=== PATIENT | male | born 1960 | race African-American/Black ===

== ENCOUNTER 2016-05-13 00:32 | Emergency (ER) | payer MEDICARE ==
[~2016-05-13] VITALS: Ht 175.3 cm; Wt 104.0 kg
[2016-05-13 00:34] VITALS: BP 180/103; PULSE 68; RESP 16; TEMP 98.4; O2SAT 99
[2016-05-13] MEDS ORDERED: OMEP20TA PO (02:43)
[2016-05-13] MEDS ORDERED: NAVANE PO (02:43)
[2016-05-13 02:44] VITALS: BP 170/107; PULSE 67; RESP 18; O2SAT 97
[2016-05-13] MEDS ORDERED: VIST25CA PO (02:44)
[2016-05-13 03:01] VITALS: BP 156/91; PULSE 65; RESP 18; O2SAT 96
[2016-05-13 04:02] VITALS: BP 145/92; PULSE 68; RESP 18; O2SAT 96
[2016-05-13 04:29] LABS: AUTOMATED NEUTROPHIL # 4.1 TH/MM3 (1.8-7.7); BASOPHIL % 0.8 % (0.0-2.0); EOSINOPHIL # 0.1 TH/MM3 (0-0.4); EOSINOPHIL % 1.1 % (0.0-4.0); HEMATOCRIT 44.7 % (39.0-51.0); HEMO FLAGS DIFF FINAL; LYMPHOCYTE # 1.5 TH/MM3 (1.0-4.8); MEAN CELL VOLUME 88.1 FL (80.0-100.0); MEAN CORPUSCULAR HEMOGLOBIN 30.8 PG (27.0-34.0); MEAN CORPUSCULAR HGB CONC 34.9 % (32.0-36.0); MONO % 7.4 % (0.0-8.0); NEUT % 66.7 % (16.0-70.0); PLATELET COUNT 198 TH/MM3 (150-450); RED BLOOD COUNT 5.08 MIL/MM3 (4.50-5.90); RED CELL DISTRIBUTION WIDTH 12.9 % (11.6-17.2); WHITE BLOOD COUNT 6.2 TH/MM3 (4.0-11.0)
[2016-05-13 04:53] LABS: MAGNESIUM 2.1 MG/DL (1.5-2.5); POTASSIUM 3.9 MEQ/L (3.5-5.1)
--- NOTE | 2016-05-13 05:31 | PD ---
HPI Chief Complaint: Numbness/Tingling Time Seen by Provider: 04:13 Travel History International Travel<30 days: No Contact w/Intl Traveler<30days: No Traveled to known affect area: No History of Present Illness HPI 55-year-old male presents to the emergency department by private transportation for complaint of burning and tingling and needlelike sensation to both lower extremities primarily the feet and lower leg since Monday. Patient denies any specific injury. Patient denies any weakness of the lower extremities. Patient states he is not diabetic. Patient has not had any bladder or bowel dysfunction. Patient's had no recent viral illness. Symptoms are fairly symmetric. Patient states that he contacted his primary care provider who is range for several outpatient testing be performed on Monday morning. Patient has had no chest pain no rib pain no pleuritic pain no shortness of breath and no hemoptysis. Patient states that as he continued to think about his symptoms he thought he should be evaluated because she was concerned. Diabetic neuropathy. Patient states that he recently had blood work performed through his primary care provider's office his cholesterol was fine and his blood sugar was also fine. Patient is adopted does not know his family history. Patient has not noticed any swelling or edema of the lower extremities no redness or induration or increased warmth also no pallor or coolness and no claudication type symptoms with ambulation. Patient reports he is very active and [place] on the beach [place] day. Patient states since purchasing a new car with lower CT is noted that when he is sitting in the car that he has pain behind the distal thigh area and that this seems to also aggravate his symptoms since Monday. Patient states that he has adjusted the seat just this evening. Patient takes no medications for his symptoms. Symptoms appear to be intermittent in intensity. No recent long distance travel protracted bedrest her surgical procedure. No personal history of clotting disorder. Patient has history of bipolar disorder and has been well-controlled for 15 years no change in medication. Patient taking no new medications. [facility] Past Medical History Narrative Medical Bipolar disorder tobacco use alcohol use nursing notes reviewed Bipolar Disorder: Yes Diminished Hearing: No Tetanus Vaccination: < 5 Years Influenza Vaccination: No Past Surgical History Surgical History: No Previous Surgery Social History Alcohol Use: Yes (2-3x week) Tobacco Use: Yes (5 cigarettes a day) Substance Use: No Allergies-Medications (Allergen,Severity, Reaction): Coded Allergies: Penicillin (Verified Allergy, Unknown, 05/13/16) Reported Meds & Prescriptions Reported Meds & Active Scripts Active Reported Vistaril (Hydroxyzine Pamoate) 25 Mg Cap 25 Mg PO HS Omeprazole 20 Mg Tab 20 Mg PO DAILY [navane] 2 Mg PO DAILY Review of Systems Except as stated in HPI: all other systems reviewed are Neg General / Constitutional: No: Fever, Chills HENT: No: Congestion Cardiovascular: No: Chest Pain or Discomfort Respiratory: No: Shortness of Breath, Pleuritic Pain Gastrointestinal: No: Abdominal Pain Genitourinary: No: Flank Pain Musculoskeletal: Positive: Myalgias, Arthralgias, Pain (burning), No: Weakness , Cramping, Edema Skin: No Rash Neurologic: No: Weakness Psychiatric: Positive: Anxiety Hematologic/Lymphatic: No: Lymph Node Enlargement Physical Exam Narrative GENERAL: Well-developed well-nourished male in no acute distress no respiratory distress SKIN: Warm and dry. HEAD: Normocephalic. EYES: No scleral icterus. No injection or drainage. NECK: Supple, trachea midline. No JVD or lymphadenopathy. CARDIOVASCULAR: Regular rate and rhythm without murmurs, gallops, or rubs. RESPIRATORY: Breath sounds equal bilaterally. No accessory muscle use. GASTROINTESTINAL: Abdomen soft, non-tender, nondistended. MUSCULOSKELETAL: No cyanosis, or bilateral lower extremity edema. No redness no induration no increased warmth no edema no pallor no coolness no calf tenderness negative Homans sign bilateral dorsalis pedis pulses 2+ to palpation posterior tibialis pulses 2+ to palpation femoral pulses 2+ to palpation capillary refill brisk and less than 2 seconds per digit nontender to direct palpation no deformity; extremities able to demonstrate full range of motion; negative straight-leg raising. BACK: Nontender without obvious deformity. No CVA tenderness. Data Data Last Documented VS Vital Signs Date Time Temp Pulse Resp B/P Pulse Ox O2 Delivery O2 Flow Rate FiO2 05/13/16 04:02 68 18 145/92 96 Room Air 05/13/16 00:34 98.4 Orders Complete Blood Count With Diff (05/13/16 04:13) Basic Metabolic Panel (Bmp) (05/13/16 04:13) Magnesium (Mg) (05/13/16 04:13) Spine, Lumbar - Ltd (Ap & Lat) (05/13/16 ) Labs Laboratory Tests Test 05/13/16 04:15 White Blood Count 6.2 TH/MM3 Red Blood Count 5.08 MIL/MM3 Hemoglobin 15.6 GM/DL Hematocrit 44.7 % Mean Corpuscular Volume 88.1 FL Mean Corpuscular Hemoglobin 30.8 PG Mean Corpuscular Hemoglobin 34.9 % Concent Red Cell Distribution Width 12.9 % Platelet Count 198 TH/MM3 Mean Platelet Volume 8.2 FL Neutrophils (%) (Auto) 66.7 % Lymphocytes (%) (Auto) 24.0 % Monocytes (%) (Auto) 7.4 % Eosinophils (%) (Auto) 1.1 % Basophils (%) (Auto) 0.8 % Neutrophils # (Auto) 4.1 TH/MM3 Lymphocytes # (Auto) 1.5 TH/MM3 Monocytes # (Auto) 0.5 TH/MM3 Eosinophils # (Auto) 0.1 TH/MM3 Basophils # (Auto) 0.0 TH/MM3 CBC Comment DIFF FINAL Differential Comment Sodium Level 141 MEQ/L Potassium Level 3.9 MEQ/L Chloride Level 106 MEQ/L Carbon Dioxide Level 28.0 MEQ/L Anion Gap 7 MEQ/L Blood Urea Nitrogen 8 MG/DL Creatinine 0.94 MG/DL Estimat Glomerular Filtration 100 ML/MIN Rate Random Glucose 100 MG/DL Calcium Level 8.3 MG/DL Magnesium Level 2.1 MG/DL MDM Medical Decision Making Medical Screen Exam Complete: Yes Emergency Medical Condition: Yes Medical Record Reviewed: Yes Interpretation(s) Lumbar x-ray, limited: No acute bony abnormalities CBC & BMP Diagram 05/13/16 04:15 Differential Diagnosis Peripheral neuropathy radiculopathy claudication electrolyte disturbance also to consider DVT limb ischemia Narrative Course Specimens collected and sent for resulting evaluate for elevated white cell count electrolyte disturbance and limited lumbar spine x-ray patient does not have any exam findings for DVT or limb ischemia; patient offered ibuprofen for symptom relief. Patient encouraged to follow-up with primary care provider as planned for further evaluation. She is stable for outpatient management at this time. At 5:57 AM patient feels well and is desirous of being discharged home lab values are normal range physical exam is unable to reproduce any specific focality and imaging study reveals no acute bony abnormalities. Patient is stable for outpatient management and follow-up with primary care provider as planned. Diagnosis Primary Impression: Peripheral neuropathic pain Referrals: Maile Osborne MD 1 day Patient Instructions: General Instructions Additional Instructions: Follow-up with primary care provider as planned Return to the emergency department for any concerns or change in condition May use [id number] acetaminophen or ibuprofen as needed for pain or fever 100.4F or greater Increase fluid hydration Med/Other Pt SpecificInfo: No Change to Meds Disposition: 01 DISCHARGE HOME Condition: Stable Nikkie Robins MD May 13, 2016 05:31
[2016-05-13 05:47] VITALS: BP 145/92
--- NOTE | 2016-05-13 06:29 | RADRPT ---
EXAM DATE/TIME: 05/13/2016 04:27 [facility] COMPARISON: No previous studies available for comparison. INDICATIONS : Patient complains of minor lower back pain, main complaint is burning and stinging of bilateral lower legs. MEDICAL HISTORY : None. SURGICAL HISTORY : None. ENCOUNTER: Initial ACUITY: 4 - 6 days PAIN SCORE: 2/10 LOCATION: L-Spine FINDINGS: The alignment is satisfactory. There is no evidence of fracture or destructive change. Degenerative c hanges are present with small nominally ventral endplate osteophytes at multiple levels. CONCLUSION: Mild degenerative changes. No acute bony findings Adrian Sarabia MD on May 13, 2016 at 6:26 Board Certified Radiologist. This report was verified electronically.
[2016-05-14] MEDS ORDERED: THIO2CAP PO (11:26)
== END 2016-05-13 06:22 | disposition home or self-care (01) ==
LOC: NEPC 00:32
DX: G62.9 Polyneuropathy, unspecified (principal); Z72.0 Tobacco use; Z79.899 Other long term (current) drug therapy; Z86.59 Personal history of other mental and behavioral disorders
CPT/HCPCS: 72100; 80048; 83735; 85025; 99284

== ENCOUNTER 2016-05-20 18:05 | Emergency (ER) | payer MEDICARE ==
[~2016-05-20] VITALS: Ht 175.3 cm; Wt 105.0 kg
[~2016-05-20 18:05] MED LIST: OMEP20TA PO; THIO2CAP PO; VIST25CA PO
[2016-05-20 18:07] VITALS: BP 175/97; PULSE 84; RESP 16; TEMP 98.9; O2SAT 96
--- NOTE | 2016-05-20 18:51 | PD ---
HPI Chief Complaint: Abdominal Pain Time Seen by Provider: 18:43 Travel History International Travel<30 days: No Contact w/Intl Traveler<30days: No Traveled to known affect area: No History of Present Illness HPI 55-year-old male complains of right low quadrant abdominal pain. Patient states this pain started yesterday. Patient states the pain is sharp intermittent pain localized to the right low quadrant of the abdomen. Patient denies any pain radiation. Patient denies any nausea vomiting diarrhea. Patient denies dysuria or frequency. Patient denies any fever chills. PFSH Past Medical History Bipolar Disorder: Yes Diminished Hearing: No GERD: Yes Medical other: Yes (neuropathy) Social History Alcohol Use: Yes (2-3x week) Tobacco Use: Yes (5 cigarettes a day) Substance Use: No Allergies-Medications (Allergen,Severity, Reaction): Coded Allergies: Penicillin (Verified Allergy, Unknown, 05/20/16) Reported Meds & Prescriptions Reported Meds & Active Scripts Active Reported Thiothixene 2 Mg Cap 2 Mg PO DAILY Vistaril (Hydroxyzine Pamoate) 25 Mg Cap 25 Mg PO HS Omeprazole 20 Mg Tab 20 Mg PO DAILY Review of Systems General / Constitutional: No: Fever Eyes: No: Visual changes HENT: No: Headaches Cardiovascular: No: Chest Pain or Discomfort Respiratory: No: Shortness of Breath Gastrointestinal: Positive: Abdominal Pain Genitourinary: No: Dysuria Musculoskeletal: No: Pain Skin: No Rash Neurologic: No: Weakness Psychiatric: No: Depression Endocrine: No: Polydipsia Hematologic/Lymphatic: No: Easy Bruising Physical Exam Narrative GENERAL: Well-nourished, well-developed patient. SKIN: Warm and dry. HEAD: Normocephalic. EYES: No scleral icterus. No injection or drainage. NECK: Supple, trachea midline. No JVD or lymphadenopathy. CARDIOVASCULAR: Regular rate and rhythm without murmurs, gallops, or rubs. RESPIRATORY: Breath sounds equal bilaterally. No accessory muscle use. GASTROINTESTINAL: Abdomen soft, nondistended. Patient has mild to moderate tenderness on palpation right low quadrant of the abdomen. No rebound tenderness. No mass. MUSCULOSKELETAL: No cyanosis, or edema. BACK: Nontender without obvious deformity. No CVA tenderness. Neurologic exam normal. Data Data Last Documented VS Vital Signs Date Time Temp Pulse Resp B/P Pulse Ox O2 Delivery O2 Flow Rate FiO2 05/20/16 18:07 98.9 84 16 175/97 96 Room Air Orders Complete Blood Count With Diff (05/20/16 18:48) Comprehensive Metabolic Panel (05/20/16 18:48) Lipase (05/20/16 18:48) Prothrombin Time / Inr (Pt) (05/20/16 18:48) Act Partial Throm Time (Ptt) (05/20/16 18:48) Urinalysis - C+S If Indicated (05/20/16 18:48) Ct Abd/Pel W Iv Contrast(Rout) (05/20/16 18:48) Iv Access Insert/Monitor (05/20/16 18:48) Ecg Monitoring (05/20/16 18:48) Oximetry (05/20/16 18:48) Iohexol 350 Inj (Omnipaque 350 Inj) (05/20/16 20:52) Labs Laboratory Tests Test 05/20/16 05/20/16 18:50 18:55 White Blood Count 7.6 TH/MM3 Red Blood Count 5.31 MIL/MM3 Hemoglobin 16.2 GM/DL Hematocrit 47.1 % Mean Corpuscular Volume 88.6 FL Mean Corpuscular Hemoglobin 30.4 PG Mean Corpuscular Hemoglobin 34.3 % Concent Red Cell Distribution Width 13.2 % Platelet Count 204 TH/MM3 Mean Platelet Volume 8.2 FL Neutrophils (%) (Auto) 72.6 % Lymphocytes (%) (Auto) 18.5 % Monocytes (%) (Auto) 7.6 % Eosinophils (%) (Auto) 0.8 % Basophils (%) (Auto) 0.5 % Neutrophils # (Auto) 5.5 TH/MM3 Lymphocytes # (Auto) 1.4 TH/MM3 Monocytes # (Auto) 0.6 TH/MM3 Eosinophils # (Auto) 0.1 TH/MM3 Basophils # (Auto) 0.0 TH/MM3 CBC Comment DIFF FINAL Differential Comment Prothrombin Time 10.4 SEC Prothromb Time International 0.9 RATIO Ratio Activated Partial 28.1 SEC Thromboplast Time Sodium Level 139 MEQ/L Potassium Level 4.2 MEQ/L Chloride Level 103 MEQ/L Carbon Dioxide Level 30.1 MEQ/L Anion Gap 6 MEQ/L Blood Urea Nitrogen 9 MG/DL Creatinine 1.09 MG/DL Estimat Glomerular Filtration 85 ML/MIN Rate Random Glucose 99 MG/DL Calcium Level 8.6 MG/DL Total Bilirubin 0.4 MG/DL Aspartate Amino Transf 13 U/L (AST/SGOT) Alanine Aminotransferase 26 U/L (ALT/SGPT) Alkaline Phosphatase 88 U/L Total Protein 7.6 GM/DL Albumin 4.1 GM/DL Lipase 168 U/L Urine Color LIGHT-YELLOW Urine Turbidity CLEAR Urine pH 7.5 Urine Specific [place] 1.004 Urine Protein NEG mg/dL Urine Glucose (UA) NEG mg/dL Urine Ketones NEG mg/dL Urine Occult Blood NEG Urine Nitrite NEG Urine Bilirubin NEG Urine Urobilinogen LESS THAN 2.0 MG/DL Urine Leukocyte Esterase NEG Urine WBC LESS THAN 1 /hpf Urine Squamous Epithelial <1 /hpf Cells Microscopic Urinalysis Comment CULT NOT INDICATED MDM Medical Decision Making Medical Screen Exam Complete: Yes Emergency Medical Condition: Yes Interpretation(s) 2023 PM. CBC within normal limit. CMP within normal limit. UA is negative. 22:09 PM. Last Impressions Abdomen/Pelvis CT 05/20/16 1848 Signed Impressions: Service Date/Time: Friday, May 20, 2016 20:49 - CONCLUSION: 1. No obstruction or acute inflammatory changes. Normal appendix. 2. Mild fatty infiltration of the liver. 3. Small, benign right renal cyst. 4. Incidentally seen 4 mm nodule of the visualized right lower lobe. 6 month followup noncontrast chest CT recommended. Adrian Thakur MD Differential Diagnosis Differential diagnosis including appendicitis, colitis, UTI, pyelonephritis, nephrolithiasis, musculoskeletal. Narrative Course 55-year-old male with right low quadrant abdominal pain. Diagnosis Primary Impression: Abdominal colic Patient Instructions: General Instructions Additional Instructions: Tylenol or Advil for pain. Follow-up with personal physician. Return if persistent problem or worse. Med/Other Pt SpecificInfo: No Change to Meds Disposition: 01 DISCHARGE HOME Condition: Stable Alejandro Bucio MD May 20, 2016 18:51
[2016-05-20 19:08] LABS: AUTOMATED NEUTROPHIL # 5.5 TH/MM3 (1.8-7.7); BASOPHIL % 0.5 % (0.0-2.0); EOSINOPHIL # 0.1 TH/MM3 (0-0.4); EOSINOPHIL % 0.8 % (0.0-4.0); HEMATOCRIT 47.1 % (39.0-51.0); HEMO FLAGS DIFF FINAL; LYMPH % 18.5 % (9.0-44.0); LYMPHOCYTE # 1.4 TH/MM3 (1.0-4.8); MEAN CELL VOLUME 88.6 FL (80.0-100.0); MEAN CORPUSCULAR HEMOGLOBIN 30.4 PG (27.0-34.0); MEAN CORPUSCULAR HGB CONC 34.3 % (32.0-36.0); MONO % 7.6 % (0.0-8.0); NEUT % 72.6 % (16.0-70.0); PLATELET COUNT 204 TH/MM3 (150-450); RED BLOOD COUNT 5.31 MIL/MM3 (4.50-5.90); RED CELL DISTRIBUTION WIDTH 13.2 % (11.6-17.2); WHITE BLOOD COUNT 7.6 TH/MM3 (4.0-11.0)
[2016-05-20 19:15] LABS: BLOOD, URINE NEG (NEG); GLUCOSE,URINE NEG (NEG); KETONE, URINE NEG (NEG); NITRITE,URINE NEG (NEG); PH, URINE 7.5 (5.0-8.5); SQUAMOUS EPITHELIAL CELL URINE <1 /hpf (0-5); URINE COLOR LIGHT-YELLOW (YELLW/STRAW)
[2016-05-20 19:16] LABS: COMMENT (UR) CULT NOT INDICATED; CULTURE IF INDICATED CULT NOT INDICATED
[2016-05-20 19:45] LABS: APTT (PATIENT) 28.1 SEC (24.3-30.1); INTERNATIONAL NORMALIZED RATIO 0.9 RATIO; PROTHROMBIN TIME - PATIENT 10.4 SEC (9.8-11.6)
[2016-05-20 19:56] LABS: ANION GAP 6 MEQ/L (5-15); AST (GOT) 13 U/L (15-37); BICARBONATE 30.1 MEQ/L (21.0-32.0); BLOOD UREA NITROGEN 9 MG/DL (7-18); CHLORIDE 103 MEQ/L (98-107); GLOMERULAR FILTRATION RATE 85 ML/MIN (>89); POTASSIUM 4.2 MEQ/L (3.5-5.1); SODIUM (NA) 139 MEQ/L (136-145)
[2016-05-20 19:59] LABS: ALKALINE PHOSPHATASE 88 U/L (45-117); ALT (GPT) 26 U/L (12-78); TOTAL BILIRUBIN ADULT 0.4 MG/DL (0.2-1.0)
[2016-05-20] MEDS ORDERED: IOHEXOL 350 MG/ML 10 ML VIAL (for RAD DIAG) IV ONE (20:52)
--- NOTE | 2016-05-20 21:40 | RADRPT ---
EXAM DATE/TIME: 05/20/2016 20:49 [facility] COMPARISON: No previous studies available for comparison. INDICATIONS : Right lower quadrant pain. IV CONTRAST: 99 cc Omnipaque 350 (iohexol) IV ORAL CONTRAST: No oral contrast ingested. RADIATION DOSE: CTDIvol (mGy) MEDICAL HISTORY : Gastroesophageal reflux disease. SURGICAL HISTORY : None. ENCOUNTER: Initial ACUITY: 1 day PAIN SCALE: 7/10 LOCATION: abdomen TECHNIQUE: Volumetric scanning of the abdomen and pelvis was performed. Using automated exposure control and ad justment of the mA and/or kV according to patient size, radiation dose was kept as low as reasonably achievable to obtain optimal diagnostic quality images. FINDINGS: LOWER LUNGS: Uppermost axial images a 4 mm nodule of the right lower lobe. LIVER: Mild fatty infiltration. Homogeneous density without lesion. There is no dilation of the biliary [place]. No calcified gallstones. SPLEEN: Normal size without lesion. PANCREAS: Within normal limits. KIDNEYS: Normal in size and shape. 1 cm benign cyst right kidney. There is no solid mass, stone or hydronephr osis. ADRENAL GLANDS: Within normal limits. VASCULAR: There is no aortic aneurysm. BOWEL/MESENTERY: The stomach, small bowel, and colon demonstrate no acute abnormality. There is no free intraperitone al air or fluid. The appendix is well-visualized, normal. ABDOMINAL WALL: Within normal limits. RETROPERITONEUM: There is no lymphadenopathy. BLADDER: No wall thickening or mass. REPRODUCTIVE: Within normal limits. INGUINAL: There is no lymphadenopathy or hernia. MUSCULOSKELETAL: Within normal limits for patient age. CONCLUSION: 1. No obstruction or acute inflammatory changes. Normal appendix. 2. Mild fatty infiltration of the liver. 3. Small, benign right renal cyst. 4. Incidentally seen 4 mm nodule of the visualized right lower lobe. 6 month followup noncontrast [facility] CT recommended. Adrian Thakur MD on May 20, 2016 at 21:36 Board Certified Radiologist. This report was verified electronically.
== END 2016-05-20 22:33 | disposition home or self-care (01) ==
LOC: NEPB 18:05
DX: R10.84 Generalized abdominal pain (principal); R10.31 Right lower quadrant pain; Z72.0 Tobacco use; Z87.19 Personal history of other diseases of the digestive system; Z86.69 Personal history of other diseases of the nervous system and sense organs; Z86.59 Personal history of other mental and behavioral disorders
CPT/HCPCS: 74177; 80053; 81001; 83690; 85025; 85610; 85730; 99284; Q9967